=== PATIENT | male | born 1980 | race American Indian/Alaskan Native ===

== ENCOUNTER 2019-07-27 15:26 | Emergency (ER) | payer SELFPAY ==
[2019-07-27 15:32] VITALS: BP 114/74
--- NOTE | 2019-07-27 15:54 | Emergency Department Report ---
ED ENT HPI - General Chief complaint: Dental/Oral Stated complaint: TOOTHACHE Time Seen by Provider: 07/27/19 15:50 Source: patient Mode of arrival: Ambulatory Limitations: No Limitations - History of Present Illness Initial comments: This is a 39-year-old male nontoxic well in appearance with no signs of distress presents to the ED with complaint of toothache x3 months. Patient denies any facial swelling. Denies following up with a dentist. Denies any fever, chills, headache, nausea, vomiting, chest pain or SOB. Denies any other complaints. De nies any allergies. MD complaint: tooth pain -: month(s) (3) Location: tooth # 1 - pain here Severity: mild Severity scale (0 -10): 8 Quality: aching Consistency: constant Improves with: none Worsens with: none Associated Symptoms: toothache. denies: fever, cough, gum swelling, pain with swallowing, sore throat, tinnitus, hearing loss, discharge from ear, rhinorrhea - Related Data Allergies Allergy/AdvReac Type Severity Reaction Status Date / Time No Known Allergies Allergy Verified 07/27/19 15:28 ED Dental HPI - General Chief complaint: Dental/Oral Stated complaint: TOOTHACHE Time Seen by Provider: 07/27/19 15:50 Source: patient Mode of arrival: Ambulatory Limitations: No Limitations - Related Data Allergies Allergy/AdvReac Type Severity Reaction Status Date / Time No Known Allergies Allergy Verified 07/27/19 15:28 ED Review of Systems ROS: Stated complaint: TOOTHACHE Other details as noted in HPI Constitutional: denies: chills, fever Eyes: denies: eye pain, eye discharge, vision change ENT: dental pain. denies: ear pain, throat pain Respiratory: denies: cough, shortness of breath, wheezing Cardiovascular: denies: chest pain, palpitations Endocrine: no symptoms reported Gastrointestinal: denies: abdominal pain, nausea, diarrhea Genitourinary: denies: urgency, dysuria Musculoskeletal: denies: back pain, joint swelling, arthralgia Skin: denies: rash, lesions Neurological: denies: headache, weakness, paresthesias Psychiatric: denies: anxiety, depression Hematological/Lymphatic: denies: easy bleeding, easy bruising ED Past Medical Hx - Past Medical History Previous Medical History?: No - Surgical History Past Surgical History?: No ED Physical Exam - General Limitations: No Limitations General appearance: alert, in no apparent distress - Head Head exam: Present: atraumatic, normocephalic - Expanded ENT Exam Expanded Ear exam: Present: normal external inspection Mouth exam: Present: normal external inspection. Absent: drooling, trismus, muffled voice Teeth exam: Present: dental tenderness #, other (uvula midline. no facial swelling). Absent: dental caries, fractured tooth #, gingival enlargement Throat exam: Positive: normal inspection. Negative: tonsillar erythema, tonsil lomegaly, tonsillar exudate, R peritonsillar mass, L peritonsillar mass - Neck Neck exam: Present: normal inspection, full ROM. Absent: tenderness, meningismus, lymphadenopathy ED Course Vital Signs 07/27/19 15:30 Temperature 98.5 F Pulse Rate 83 Respiratory 16 Rate Blood Pressure 114/74 O2 Sat by Pulse 99 Oximetry - Reevaluation(s) Reevaluation #1: 07/27/19 15:53 Patient is speaking in full sentences with no signs of distress noted. ED Medical Decision Making - Medical Decision Making This is a 39-year-old male that presents with nonmedical emergency complaint. I gave patient many different referrals to follow-up with dentist. Patient was instructed to Follow-up with a dentist doctor in 3-5 days or if symptoms worsen and continue return to emergency room as soon as possible. At time of discharge, the patient does not seem toxic or ill in appearance. No acute signs of distress noted. Patient agrees to discharge treatment plan of care. No further questions noted by the patient. Critical care attestation.: If time is entered above; I have spent that time in minutes in the direct care of this critically ill patient, excluding procedure time. ED Disposition Clinical Impression: Toothache Disposition: Z- MED SCREENING EXAM-LEFT Is pt being admited?: No Does the pt Need Aspirin: No Condition: Stable Instructions: Toothache (ED) Additional Instructions: Follow-up with a dentist doctor in 3-5 days or if symptoms worsen and continue return to emergency room as soon as possible. Referrals: PRIMARY CARE, [Referring] - 3-5 Days SANDRA BRAVO MD [Staff Physician] - 3-5 Days [facility] [Outside] - 3-5 Days
== END 2019-07-27 16:00 | disposition left against medical advice (07) ==
LOC: ED 15:26
DX: K08.89 Other specified disorders of teeth and supporting structures (principal)
CPT/HCPCS: 99281